=== PATIENT | female | born 1990 | race Two or more races ===

== ENCOUNTER 2024-10-03 16:44 | Emergency (ER) | payer MEDICAID, OTHER ==
[~2024-10-03] VITALS: Ht 157.5 cm; Wt 55.1 kg
--- NOTE | 2024-10-03 17:56 | ED.PDOC ---
History of Present Illness HPI Comments This is a 33-year-old female who comes in with chief complaint of pain at a 6/10. The patient denies any blood clots but is having some mild bleeding. She states that she is approximately five weeks and does not have any care at this time. She states that the symptoms started at approximat eze 12:00 p.m. today. The patient denies any trauma. Chief Complaint: Pelvic Pain Time Seen by MD: 17:03 Primary Care Provider: NONE Reviewed Notes: Nurses Notes, Medications, Allergies (See list ) Allergies: Coded Allergies: Codeine (Verified Allergy, Unknown, 10/03/24) Home Meds Active Scripts Nitrofurantoin Monohydrate Mac (Macrobid) 100 Mg Cap, 100 MG PO BID for 5 Days, #10 CAP Prov:CHASITY LOUISE MD 10/03/24 Information Source: Patient Mode of Arrival: Ambulatory Severity: Mild Timing: Hours Duration: Since onset Prehospital treatment: None Past Medical History PAST MEDICAL HISTORY: Denies Surgical History: Denies all surgeries VEHICLE INSURANCE AGENT History: No Pertinent VEHICLE INSURANCE AGENT History Family History Family History: No family hx of Cancer, No family hx of DM, No family hx of Heart facundo Social History Smoker: Other (VAPE) Alcohol: Denies ETOH Use Drugs: Denies Drug Use Lives In: Home Constitutional: denies: chills, diaphoresis, fatigue, fever, malaise, sweats, weakness, others EENTM: denies: blurred vision, double vision, ear bleeding, ear discharge, ear drainage, ear pain, ear ringing, eye pain, eye redness, hearing loss, mouth pain, mouth swelling, nasal discharge, nose bleeding, nose congestion, nose pain, photophobia, tearing, throat pain, throat swelling, voice changes, others Respiratory: denies: cough, hemoptysis, orthopnea, SOB at rest, shortness of breath, SOB with excertion, stridor, wheezing, others Cardiovascular: denies: chest pain, dizzy spells, diaphoresis, Dyspnea on exertion, edema, irregular heart beat, left arm pain, lightheadedness, palpitations, PND, syncope, others Gastrointestinal: denies: abdomen distended, abdominal pain, blood streaked bowels, constipated, diarrhea, dysphagia, difficulty swallowing, hematemesis, melena, nausea, poor appetite, poor fluid intake, rectal bleeding, rectal pain, vomiting, others Genitourinary: denies: abnormal vagina bleeding, burning, dyspareunia, dysuria, flank pain, frequency, hematuria, incontinence, pain, , vagina discharge, urgency, others Neurological: denies: dizziness, fainting, headache, left sided numbness, left sided weakness, numbness, paresthesia, pre-existing deficit, right sided numbness, right sided weakness, seizure, speech problems, tingling, tremors, weakness, others Musculoskeletal: denies: back pain, gout, joint pain, joint swelling, muscle pain, muscle stiffness, neck pain, others Integumetry: denies: bruises, change in color, change in hair/nails, dryness, laceration, lesions, lumps, rash, wounds, others Allergic/Immunocompromised: denies: Difficulty Healing, Frequent Infections, Hives, Itching, others Hematologic/Lymphatic: denies: anemia, blood clots, easy bleeding, easy bruising, swollen glands, others Endocrine: denies: excessive hunger, excessive sweating, excessive thirst, excessive urination, flushing, intolerance to cold, intolerance to heat, unexplained weight gain, unexplained weight loss, others Psychiatric: denies: anxiety, bipolar disorder, depression, hopeless, panic disorder, schizophrenia, sleepless, suicidal, others Physical Exam General Appearance: No Apparent Distress HEENT: Normal ENT Inspection, Pharynx Normal, TMs Normal Neck: Full Range of Motion, Non-Tender, Normal, Normal Inspection Respiratory: Chest Non-Tender, Lungs Clear, No Accessory Muscle Use, No Respiratory Distress, Normal Breath Sounds Cardiovascular: No Edema, No JVD, No Murmur, No Gallop, Normal Peripheral Pulses, Regular Rate/Rhythm Breast Exam: Deferred Gastrointestinal: No Organomegaly, Non Tender, No Pulsatile Mass, Normal Bowel Sounds, Soft Genitalia: Deferred Pelvic: Deferred Rectal: Deferred Extremities: No calf tenderness, Normal capillary refill, Normal inspection, Normal range of motion, Non-tender, No pedal edema Musculoskeletal : Apperance: Normal Neurologic: Alert, baggage inspector II-XII nml as Tested, No Motor Deficits, Normal Affect, Normal Mood, No Sensory Deficits Cerebellar Function: Normal Reflexes: Normal Skin: Dry, Normal Color, Warm Lymphatic: No Adenopathy Was a procedure done? Was a procedure done?: No Differential Dx Considerations may include: Threatened , pain in X-Ray, Labs, Meds, VS Vital Signs Date Time Temp Pulse Resp B/P (MAP) Pulse Ox O2 Delivery O2 Flow Rate FiO2 10/03/24 17:05 98.4 82 16 129/87 (101) 100 Lab Test 10/03/24 17:25 10/03/24 17:06 Range/Units Beta HCG, Quantitative 1803.3 H 1.5-4.2 mIU/mL Urine Color Colorless Yellow Urine Clarity Turbid H Clear Urine pH 7.0 5.0-9.0 Urine Specific [place] 1.010 1.001-1.035 Urine Protein Negative Negative Urine Ketones Negative Negative Urine Blood Negative Negative /uL Urine Nitrite Negative Negative Urine Bilirubin Negative Negative Urine Urobilinogen Normal Negative mg/dL Urine Leukocyte Esterase 3+ Negative /uL Urine RBC 3 0 - 4 /hpf Urine WBC 15 0 - 5 /hpf Urine Squamous Epithelial Cells Mod <5 /hpf Urine Bacteria Few H None Seen /hpf Urine Glucose Normal Normal mg/dL The urine test is positive for UTI The patient was being placed on Macrobid The quantitative hCG is 1803 The pelvic ultrasound shows: IMPRESSION: The uterus measures 8.9 x 6.1 x 7.9 cm. Small amount of free fluid in the pelvic cul-de-sac. Hypoechoic structure within the endometrium measuring 0.8 cm. Yolk sac is visualized. No pole is identified. Findings are most likely due to early gestation. Recommend follow-up ultrasound in 2 weeks to rule out failed . Right ovary measures 4.7 x 4.1 x 2.0 cm with cystic lesion measuring 2.3 cm. Right ovary demonstrates normal color doppler flow. Left ovary is not visualized on this study. At this time we are going to discharge the patient and the patient will follow up with the primary care doctor. We do not feel that this patient's is an ectopic but because it is also a possibility of being early we are having the patient come back within the next two days for a repeat quantitative hCG The patient was told specifically to return to the emergency department's the condition worsens The patient understands that there is a possibility that this could be an ectopic so she will return if any pain worsens. Images Reviewed?: Images reviewed and evaluated by me Time of 1ST Reevaluation: 17:53 Reevaluation 1ST: Improved Patient Education/Counseling: Diagnosis, Treatment, Prognosis, Need For Follow Up Family Education/Counseling: No Family Present Departure 1 Departure Time of Disposition: 17:52 Impression: Primary Impression: Abdominal pain during Qualified Codes: O26.899 - Other specified related conditions, unspecified trimester; R10.9 - Unspecified abdominal pain Additional Impression: UTI in Qualified Codes: O23.41 - Unspecified infection of urinary tract in , first trimester Disposition: HOME / SELF CARE / HOMELESS Condition: Fair e-Prescriptions Nitrofurantoin Monohydrate Mac (Macrobid) 100 Mg Cap 100 MG PO BID for 5 Days, #10 CAP Prov: CHASITY LOUISE MD 10/03/24 Discharged With: Self Critical Care Note Critical Care Time?: No Stability Stability form required: No Heart Score Heart Score: Heart Score Response (Comments) Value History N/A 0 EKG N/A 0 Age N/A 0 Risk Factors N/A 0 Troponin N/A 0 Total 0 CHASITY LOUISE MD Oct 03, 2024 17:56
[2024-10-03 18:12] LABS: Urine Bacteria FEW /hpf (None Seen); Urine Blood Negative /uL (Negative); Urine Clarity Turbid (Clear); Urine Color Colorless (Yellow); Urine Protein, UAD Negative (Negative); Urine Squamous Epithelial Cell MOD /hpf (<5); Urine Urobilinogen Normal (Negative); Urine WBC 15 /hpf (0 - 5)
--- NOTE | 2024-10-03 19:47 | DVH ---
OB EVALUATION, LESS THAN 14 WEEKS CLINICAL HISTORY: pain COMPARISON: None TECHNIQUE: Grayscale, color-flow Doppler, and spectral Doppler ultrasound of the pelvis is performed by transabdominal and transvaginal technique. FINDINGS: The uterus measures approximately 11.2 x 6.2 x 6.8 cm. Tiny sac-like structure within the endometrial canal is too small to further characterize. The right ovary measures 4.7 x 3.3 x 2.9 cm. Right ovary demonstrates dopplerable blood flow on spect ral analysis. Left ovary is not visualized. No significant fluid in the cul-de-sac. IMPRESSION: Tiny, subcentimeter sac-like structure within the fundus of the endometrial canal. This is too small to further characterize. No pole or yolk sac identified at this time. Differential diagnosis in this setting includes early , failure/miscarriage as well as ectopic gestation. R ecommend short-term interval follow-up and correlation with serial beta HCG testing.
[2024-10-03] MEDS ORDERED: NITR-87 PO (20:18)
[2024-10-03 21:39] VITALS: BP 137/85; PULSE 77; RESP 18; TEMP 98.2; O2SAT 100
== END 2024-10-03 21:41 | disposition home or self-care (01) ==
LOC: ER 16:44
DX: O26.891 Other specified pregnancy related conditions, first trimester (principal); R10.2 Pelvic and perineal pain; O23.41 Unspecified infection of urinary tract in pregnancy, first trimester; N39.0 Urinary tract infection, site not specified; Z88.5 Allergy status to narcotic agent; Z3A.01 Less than 8 weeks gestation of pregnancy
CPT/HCPCS: 36415; 76801; 76817; 81001; 84702